=== PATIENT | male | born 1980 | race Caucasian/White ===

== ENCOUNTER 2018-07-12 00:22 | Emergency (ER) | payer OTHER ==
[~2018-07-12] VITALS: Ht 182.9 cm; Wt 111.1 kg
[~2018-07-12 00:22] MED LIST: ARTHITIS MED; BENADRYL25 MG PO; CYCLOBENZAPRINE10 MG PO; DOXYCYCLINE 10100 MG PO; GLUCOPHAGE XR500 MG PO; IBUPROFEN 800800 M1 PO; LIORESAL 10 MG10 MG PO; LISINOPRIL20 MG PO; PERCOCET PO; PRAVACHOL 20 MG20 M1 PO; PREDNISONE 20 M20 M1 PO; PROAIR HFA8.5 GM PO; RANITIDINE 150150 M1 PO; TIZANIDINE HCL4 M1 PO
[2018-07-12] MEDS ORDERED: FLEXERIL PO (00:28)
[2018-07-12] MEDS ORDERED: ULTRAM 50MG TAB50 MG PO (00:28)
[2018-07-12 00:30] VITALS: BP 120/82
== END 2018-07-12 00:39 | disposition home or self-care (01) ==
LOC: M.ERS 00:22
DX: M43.6 Torticollis (principal); E11.9 Type 2 diabetes mellitus without complications; I10 Essential (primary) hypertension; E78.00 Pure hypercholesterolemia, unspecified; F17.210 Nicotine dependence, cigarettes, uncomplicated

== ENCOUNTER 2018-10-17 17:15 | Emergency (ER) | payer OTHER ==
[~2018-10-17] VITALS: Ht 182.9 cm; Wt 113.4 kg
[~2018-10-17 17:15] MED LIST changes: +FLEXERIL PO; +ULTRAM 50MG TAB50 MG PO
[2018-10-17 18:13] LABS: ABSOLUTE BASOPHILS 0.1 thou/uL (0.0-0.2); ABSOLUTE EOSINOPHILS 0.2 thou/uL (0.0-0.7); ABSOLUTE LYMPHOCYTES 2.2 thou/uL (0.8-5.3); ABSOLUTE MONOCYTES 0.7 thou/uL (0.0-1.2); ABSOLUTE NEUTROPHILS 5.9 thou/uL (1.6-8.1); EOSINOPHILS 1.9 %; HEMATOCRIT 43.1 % (42.0-52.0); HEMOGLOBIN 14.5 gm/dL (14.0-18.0); LYMPHOCYTES 24.3 %; MCH 30.8 pg (26.0-34.0); MCHC 33.6 g/dL (28.0-37.0); MCV 91.6 fL (80.0-100.0); MONOCYTES 7.9 %; MPV 9.3 fl. (7.2-11.1); NUCLEATED RBCS 0 /100WBC; PLATELET COUNT* 250 thou/uL (150-400); POLYS 64.9 %; RBC 4.71 mil/uL (4.50-6.00); RDW-CV 13.6 % (10.5-14.5)
[2018-10-17 18:20] LABS: ANION GAP 7 mmol/L (7-16); BUN 13 mg/dL (7-18); CALCIUM 8.7 mg/dL (8.5-10.1); CHLORIDE 105 mmol/L (98-107); CO2 28 mmol/L (21-32); GLUCOSE 92 mg/dL (70-99); POTASSIUM 3.8 mmol/L (3.5-5.1); SODIUM 140 mmol/L (136-145)
[2018-10-17 18:34] LABS: ALBUMIN 3.9 g/dL (3.4-5.0); ALKALINE PHOSPHATASE 61 U/L (46-116); SGOT 13 U/L (15-37); SGPT 32 U/L (30-65); TOTAL BILIRUBIN 0.2 mg/dL (<0.1-1.0); TOTAL PROTEIN 7.2 g/dL (6.4-8.2); TROPONIN-I LEVEL <0.06 ng/mL (<0.06)
[2018-10-17] MEDS ORDERED: NABUMETONE 750750 M1 PO (18:38)
[2018-10-17] MEDS ORDERED: TRAMADOL 50 MG50 MG PO (18:38)
[2018-10-17 19:08] VITALS: BP 137/92
--- NOTE | 2018-10-18 11:13 | EKG ---
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
== END 2018-10-17 19:08 | disposition home or self-care (01) ==
LOC: M.ERS 17:15
PROVIDERS: Nurse Practitioner Family
DX: M54.6 Pain in thoracic spine (principal); F17.210 Nicotine dependence, cigarettes, uncomplicated; E11.9 Type 2 diabetes mellitus without complications; I10 Essential (primary) hypertension; E78.00 Pure hypercholesterolemia, unspecified; M19.90 Unspecified osteoarthritis, unspecified site